=== PATIENT | female | born 1985 | race Caucasian/White ===

== ENCOUNTER 2020-03-11 11:22 | Outpatient (REF) | payer OTHER, SELFPAY | END 2020-03-11 11:23 | disposition home or self-care (01) | LOC: HO.LAB 11:22 | PROVIDERS: Visit Provider Internal Medicine | DX: Z20.828 Contact with and (suspected) exposure to other viral communicable diseases (principal) | CPT/HCPCS: 87635 ==

== ENCOUNTER 2020-03-30 12:22 | Outpatient (REF) | payer OTHER, SELFPAY | END 2020-03-30 12:23 | disposition home or self-care (01) | LOC: HO.LAB 12:22 | PROVIDERS: Visit Provider Internal Medicine | DX: Z20.828 Contact with and (suspected) exposure to other viral communicable diseases (principal) | CPT/HCPCS: C9803; U0003 ==

== ENCOUNTER 2021-07-23 18:57 | Emergency (ER) | payer OTHER, SELFPAY ==
--- NOTE | ~2021-07-23 | CT_ITS ---
EXAMINATION: NONCONTRAST HEAD CT NONCONTRAST SINUS CT INDICATION INFORMATION: Right side numbness. Evaluate for sinusitis. COMPARISON: CT of the brain dated from 05/28/2016. TECHNIQUE: Separate noncontrast CT examinations of the head and paranasal sinuses were performed. Coronal and sagittal images were created for each examination at the technologist workstation. This CT examination was performed using dose optimization techniques as appropriate, variously including the following: *Automated exposure control *Adjustment of mA and/or kV according to patient size (this includes techniques or standardized protocols for targeted exams where dose is matched to indication/reason for exam; i.e. extremities or head) *Use of iterative reconstruction technique DLP: 734 and 133 mGy-cm FINDINGS: Head: There is no evidence of acute intracranial hemorrhage or territorial infarction. No abnormal mass effect or midline shift is seen. Coello to white matter differentiation is well preserved. No extra-axial fluid collections are identified. No hydrocephalus. No significant volume loss. There is no abnormal attenuation within the brain parenchyma. No acute soft tissue abnormality. No calvarial fracture. The mastoid air cells are well aerated. Maxillofacial and sinuses: No acute maxillofacial fractures are seen. There is very minimal mucosal thickening of the paranasal sinuses which are otherwise clear. The uncinate process is normal bilaterally. The infundibula and middle meati are patent. The nasal septum is deviated to the left. The mandibular heads are well-seated in the condylar fossa. The orbits demonstrate a normal appearance bilaterally. The globes are intact, and there are no suspicious findings to suggest retrobulbar hemorrhage. Visualized portions of the cervical spine are unremarkable. CT/CT head/brain wo con IMPRESSION: Very mild mucosal thickening of the paranasal sinuses. Otherwise, normal examination.
[2021-07-23 19:01] VITALS: BP 136/71; PULSE 82; RESP 16; TEMP 37.4; O2SAT 100; BMI 31.2
[2021-07-23 19:26] VITALS: BMI 29.7
--- NOTE | 2021-07-23 19:51 | ED.GENADULT ---
HPI - General Adult General Chief complaint: Eye Problems Stated complaint: numbness under eye/swollen Time Seen by Provider: 07/23/21 19:24 Source: patient Mode of arrival: ambulatory Limitations: no limitations History of Present Illness HPI narrative: 35 yold who smokes presents to the ED for numbness/tingling under right eye for 3 days and slight discomfort below right eye. patient denies any change in vision, pain actual eye, loss of visions, headache, dizziness, slurred speech, paralysis/weakness of extremities, headache, nausea, vomitting, dizziness, eye redness, eye pain, chest pain, shortness of breath, eye discharge, or recent trauma to the eye/face. Related Data Previous Rx's Medication Instructions Recorded triamcinolone acetonide 55 mcg 2 spray INTRANASAL DAILY 7 Days 07/23/21 nasal spray aerosol (Nasacort) #16.9 ml Allergies Allergy/AdvReac Type Severity Reaction Status Date / Time No Known Allergies Allergy Unverified 01/29/20 17:22 [No Known Allergies*] Review of Systems Review of Systems: under right eye numbness/tingling. Yes all other systems are reviewed and are negative ENT: Reports Normal hearing present Neurologic: Reports Normal hearing present [facility] Past Medical History Medical History (Updated 07/24/21 @ 00:02 by Background Daemon) No known health problems Social History Social History Advance Directives: No Advance Directives Information Provided: No Patient : No Physical Exam ED Vital Signs: Vital Signs - 24 hr 07/23/21 19:01 Temperature 99.3 F Pulse Rate 82 Respiratory Rate 16 Blood Pressure 136/71 Pulse Oximetry 100 BMI result Body Mass Index 29.7 Const General: cooperative, healthy appearing, comfortable, no acute distress, well developed, alert, awake and Physically active Orientation/consciousness: patient oriented x3 HENMT Head: Yes normal to inspection, Yes No palpable skull fracture present, Yes normocephalic, Yes atraumatic and No abrasion Ears: hearing grossly normal bilaterally, external ears normal, TM's normal bilaterally, EAC's normal, mastoids normal and no periauricular adenopathy General nose exam: Normal external nose present and Normal nares present Eyes Other: Left eye are normal. Right eye visual acuity 20/30. Left eye 20/20. Pupils: Equal, round and reactive pupils present Eyes/upper lids images: 1. patient states tenderness with numbness/tingling and slightly less sensation in comparison to area below left eye. Right eye negative for swelling of eyelids, redness of conjuctiiva/sclera, fever, globe tenderness, or discharge. Negative for obvious foreign body or corneal abrasion. Right eye to tonometry pressure is 14 and left eye is 19. Neck Neck: Yes normal visual inspection, Yes full ROM, Yes no lymphadenopathy, Yes no meningeal signs, Yes trachea midline, Yes supple, No anterior neck swelling and No tender Chest Chest palpation & inspection: normal inspection of the chest and normal palpation of entire chest wall Resp Effort & Inspection: normal respiratory effort and able to speak in complete sentences Auscultation: clear to auscultation bilaterally Cardio Jugular venous distension: no JVD Heart sounds: S1 normal heart sound present and S2 normal heart sound present GI Inspection: Yes normal to inspection and No abdominal wall ecchymosis Palpation (GI): Soft to palpation, not firm, nontender, no guarding and not rigid General: No CVA tenderness and Yes no CVA tenderness Back/Spine/Pelvis Back: no CVA tenderness, No CVA tenderness and No back tenderness Skin General skin exam: no rashes or lesions noted and elasticity normal Neuro Other: Negative for slurred speech. Negative facial droop. All extremities equal strength 5+. [id number] and rapid hand movement intact negative Romberg. Negative pronator drift. General: patient oriented x3, gait normal, no meningeal signs and CN's II-XI intact bilaterally Cranial nerves: Yes CN's II-XII intact bilaterally, Yes Intact sense of smell present, Yes Equal, round and reactive pupils present, Yes Normal accommodation reflex present, Yes Bilaterally intact EOM present, Yes Nystagmus not present, Yes Normal facial strength present, Yes Midline tongue present, Yes Normal gag reflex present, Yes Symmetric palate elevation present, Yes Normal hearing present, Yes Ability to bilaterally rotate head present and Yes Ability to bilaterally elevate shoulders present Cognition (Neuro): normal cognition Gait exam (Neuro): Normal gait present Motor exam (neuro): 5/5 motor strength present throughout Sensory Exam: Normal double simultaneous stimulation for sensation NIH Stroke Scale Internal: Initial- Upon Arrival Level of Consciousness: Alert Level of Consciousness Questions: Answers both questions correctly Level of Consciousness Commands: Performs both tasks correctly Best Gaze: Normal Visual: No visual loss Facial Palsy: Normal Motor Arm (Right): No drift Motor Arm (Left): No drift Motor Leg (Right): No drift Motor Leg (Left): No drift Limb Ataxia: Absent Sensory: Normal Best Language: No aphasia Dysarthia: Normal Extinction and Inattention: No abnormality Score: 0 Course Course Course Narrative: NIH score 0. But due to paresthesia below right eye with patient stating history of smoking with the head CT scan is no stroke (likely due to an eyes: 0. Reevaluation(s) Reevaluation #1: Head CT scan came back negative for stroke. Facial CT shows signs of paranal sinsuses thickening. Eye exam does not indicate glaucoma, conjunctivitis, scleritis, episcleritis, foreign body, globe rupture, orbital cellulitis, preseptal cellulitis, or corneal abrasion. Patient informed to follow-up with neurology for paresthesia. Patient will be discharged with Nasacort for sinus tenderness. Medical Decision Making MDM Narrative Medical decision making narrative: Paresthesia. Sinusitis Discharge Plan Discharge Clinical Impression: Sinusitis, Paresthesia Patient Disposition: Home, Self-Care Instructions: Sinusitis (ED), Paresthesia (ED) Additional Instructions: Head CT came back negative for signs of stroke. You're facial CT shows sinus wall thickening to indicate sinusitis. You will be discharged with Nasacort and also will recommend you follow-up with Neurology for paresthesia. Prescriptions: New triamcinolone acetonide [Nasacort] 55 mcg aerosol,spray 2 spray intranasal DAILY 7 Days Qty: 16.9 0RF Rx Instructions: administer into each nostril Interventions: ED Discharge Assessment Last Done: 07/23/21 21:38 Discharge Date/Time: 07/23/21 21:39 Print Language: Wolof
== END 2021-07-23 21:39 | disposition home or self-care (01) ==
PROVIDERS: Emergency Provider Emergency Medicine Emergency Medical Services
DX: J32.9 Chronic sinusitis, unspecified (principal); R20.2 Paresthesia of skin; F17.200 Nicotine dependence, unspecified, uncomplicated
CPT/HCPCS: 70450; 70486; 99283; 99284

== ENCOUNTER 2023-08-25 19:02 | Emergency (ER) | payer OTHER, SELFPAY ==
--- NOTE | ~2023-08-25 | XR_ITS ---
EXAMINATION: XR HAND, LEFT CLINICAL INFORMATION: Injury to the left small finger. COMPARISON: None available. TECHNIQUE: PA, lateral, and oblique views of the left hand. FINDINGS: Soft tissue swelling is present around the small finger PIP joint. No fracture or malalignment. Bone mineralization is normal. Joint spaces appear well-preserved. No erosions. Radiocarpal joint is unremarkable. XR/XR hand LT 2V IMPRESSION: Soft tissue swelling at the small finger PIP joint. No acute osseous findings.
[2023-08-25 19:44] VITALS: BP 108/68; PULSE 84; RESP 16; TEMP 37.2; O2SAT 100; BMI 28.4
[2023-08-25 20:05] VITALS: BP 116/68; PULSE 84; RESP 18; TEMP 37.1; O2SAT 100
--- NOTE | 2023-08-25 22:33 | ED.EXTPRO ---
HPI - Extremity Problem General Chief complaint: Extremity Injury, Upper Stated complaint: ? left pinky finger broken Time Seen by Provider: 08/25/23 22:23 Source: patient Mode of arrival: ambulatory Limitations: no limitations History of Present Illness HPI Narrative: 37-year-old female with no significant pmhx presents to the ED today for evaluation of left pinky pain/swelling after injury occurring 1 hour prior to arrival in the ED. She states that she was playing around with her boyfriend, when to push him with her left hand and felt her pinky twist/ bend. Endorses immediate pain and swelling to the base of the pinky. Admits to previous injury to left pinky years ago which caused her inability to bend the left pinky. Denies tingling/ numbness to the pinky. Denies other concerns. Related Data Previous Rx's ?Medication ?Instructions ?Recorded triamcinolone acetonide 55 mcg 2 spray intranasal DAILY 7 days 07/23/21 nasal spray aerosol (Nasacort) #16.9 mL Allergies Allergy/AdvReac Type Severity Reaction Status Date / Time No Known Allergies Allergy Verified 08/25/23 19:45 [No Known Allergies*] Review of Systems Review of Systems: Constitutional: No fever, chills, fatigue, night sweats, weight changes ENT/Mouth: No ear pain, hearing loss, nasal congestion, sinus pain, rhinorrhea, sore throat Eyes: No eye pain, swelling, redness, vision changes, discharge Cardio: No chest pain, palpitations, GONZALEZ, orthopnea, peripheral edema Pulm: No SOB, cough, sputum, wheezing, dyspnea, hemoptysis GI: No nausea, vomiting, hematemesis, abdominal pain, diarrhea, constipation, hematochezia, melena : No irregular bleeding, dysuria, frequency, urgency, hesitancy, hematuria, flank pain, urinary flow changes, urinary incontinence or retention MSK: No back pain, neck pain, joint pain, myalgias, +left pinky pain/swelling Skin: No lesions, rashes Neuro: No weakness, numbness, paresthesias, LOC, dizziness, headache Psych: No anxiety/panic, depression, SI/HI, AH/VH All other systems reviewed and are negative. [facility] Past Medical History Attestation statement: The following information was validated with the patient. Source: old records reviewed and nursing notes reviewed Medical History No known health problems Social History Social History Advance Directives: No Advance Directives Information Provided: No Physical Exam Vital Signs: Vital Signs: Last Vital Signs Temp 98.5 F 08/25/23 22:57 Pulse 80 08/25/23 22:57 Resp 18 08/25/23 22:57 BP 118/66 08/25/23 22:57 Pulse Ox 100 08/25/23 22:57 O2 Del Method Room Air 08/25/23 22:57 BMI result Body Mass Index 28.4 Vital signs stable Const: General: cooperative, healthy appearing, comfortable and no acute distress Orientation/consciousness: patient oriented x3 Limitations: no limitations HEENT: Head: Yes normal to inspection, Yes No palpable skull fracture present, Yes normocephalic and Yes atraumatic Eyes: General: appearance normal, both eyes and all related structures Conjunctivae: conjunctivae normal Sclerae: sclerae normal Pupils: Equal, round and reactive pupils present Neck: Neck: Yes normal visual inspection, Yes full ROM and Yes no lymphadenopathy Neuro: General: patient oriented x3 Cranial nerves: Yes Equal, round and reactive pupils present Extrem: Other: + left 5th digit with mild swelling and ecchymosis around the PIP. Limited ROM which is patient's baseline. Full ROM to all other digits on left hand. Entire left 5th digit tender to palpation. Normal capillary refill. 2+ radial pulse. Sensation intact. Course Course Course Narrative: 0-- x-ray left ankle does not demonstrate acute fracture. There is soft tissue swelling at the PIP joint. Discussed all results with patient. Will provide her with finger splint. Advised to take Tylenol and ibuprofen as needed for pain/discomfort. Patient has remained stable throughout ED visit today. Discussed worrisome signs and symptoms and when to return to the ED. All questions answered at this time. Patient is agreeable with disposition and stable for discharge. Medical Decision Making Medical Decision Making MDM Narrative: 37-year-old female with no significant pmhx presents to the ED today for evaluation of left pinky pain/swelling after injury occurring 1 hour prior to arrival in the ED. Vital signs stable, afebrile. She is nontoxic-appearing and in no acute distress. On exam, left 5th digit with mild swelling and ecchymosis around the PIP. Limited ROM which is patient's baseline. Full ROM to all other digits on left hand. Entire left 5th digit tender to palpation. Normal capillary refill. 2+ radial pulse. Sensation intact. Differential diagnosis includes contusion, fracture, dislocation. Unlikely open fracture, compartment syndrome, neurovascular compromise, threat to limb. Plan for x-rays and re-evaluation. Differential Diagnosis Differential Diagnoses: The differential diagnosis associated with the presentation includes As above Admission/Observation Not indicated Independent Interpretation I performed an independent interpretation of an: Plain X-Ray Interpretation: X-ray of left pinky does not demonstrate acute fracture, agree with radiologist's interpretation. Radiology Impression Discussion of test interpretation with radiology: I have reviewed the radiologist's reading. Radiologist Impression: EXAMINATION: XR HAND, LEFT CLINICAL INFORMATION: Injury to the left small finger. COMPARISON: None available. TECHNIQUE: PA, lateral, and oblique views of the left hand. FINDINGS: Soft tissue swelling is present around the small finger PIP joint. No fracture or malalignment. Bone mineralization is normal. Joint spaces appear well-preserved. No erosions. Radiocarpal joint is unremarkable. XR/XR hand LT 2V IMPRESSION: Soft tissue swelling at the small finger PIP joint. No acute osseous findings. Prescription Management I considered prescription management with: Pain Medication Social Determinants Patient?s care significantly limited by Social Determinants of Health including: Other Social Determinant of Health Procedures Orthopedic Splinting/Casting Injury #1: Side: left Upper Extremity Injury Location: finger (Pinky) Upper Extremity Immobilizer: finger (other) Critical Care Time Critical Care Time Critical Care Time: No Discharge Plan Discharge Clinical Impression: Finger sprain Patient Disposition: Home, Self-Care Instructions: Jammed Finger (ED), Finger Sprain (ED) Additional Instructions: The x-rays of your left pinky do not exhibit fracture however does show swelling. You were provided with a finger splint today. This on for 1-2 weeks to help with the healing process. You may ice the area for 20 minutes at a time. Take ibuprofen and Tylenol at home as needed for pain/discomfort. Follow-up with your primary care provider. Return with new or worsening symptoms. In the case of emergency call 911. Prescriptions: No Action triamcinolone acetonide [Nasacort] 55 mcg aerosol,spray 2 spray intranasal DAILY 7 Days Qty: 16.9 0RF Rx Instructions: administer into each nostril Stand Alone Forms: Work/School Release Interventions: ED Discharge Assessment Last Done: 08/25/23 22:57 Discharge Date/Time: 08/25/23 23:01 Print Language: Georgian
[2023-08-25 22:57] VITALS: BP 118/66; PULSE 80; RESP 18; TEMP 36.9; O2SAT 100
== END 2023-08-25 23:01 | disposition home or self-care (01) ==
PROVIDERS: Emergency Provider Emergency Medicine
DX: S63.617A Unspecified sprain of left little finger, initial encounter (principal); M79.642 Pain in left hand; Y33.XXXA Other specified events, undetermined intent, initial encounter; Y93.9 Activity, unspecified; Y92.9 Unspecified place or not applicable; Y99.8 Other external cause status
CPT/HCPCS: 29130; 73120; 99282; 99283; 99284

== ENCOUNTER 2024-05-12 21:06 | Emergency (ER) | payer OTHER, SELFPAY ==
--- NOTE | ~2024-05-12 | CT_ITS ---
CLINICAL HISTORY: Left flank, LLQ pain, 20 lb weight loss, anemia CT abdomen and pelvis with contrast Comparison: None Findings: Mild motion artifact present. No consolidation or effusion. The liver appears normal in size and contour. 4 cm low-attenuation structure with nodular peripheral enhancement present at the right hepatic lobe, most consistent with a cavernous hemangioma. The gallbladder and solid organs are otherwise within normal limits. No hydronephrosis or hydroureter. No bowel obstruction, pneumoperitoneum, or pneumatosis. There is close apposition of multiple bowel loops diffusely throughout the abdomen, mildly limiting evaluation. Pelvic contents unremarkable. No bladder wall thickening identified. Normal appendix. No acute fracture visualized. IMPRESSION: 1. No acute inflammatory process identified within the abdomen or pelvis. This document has been electronically signed by: James Mathew MD on 05/13/2024 05:05:32
[2024-05-12 21:26] VITALS: BP 148/71; PULSE 100; RESP 16; TEMP 36.9; O2SAT 99; BMI 23.9
[2024-05-12 21:46] LABS: MANUAL DIFF FLAG NO
[2024-05-12 21:47] LABS: Basophils Percent Auto 0.2 % (0-2); Eosinophils Absolute Auto 0.1 X10*3/uL (0.0-0.4); Eosinophils Percent Auto 0.6 % (0-4); Hematocrit 31.7 % (37.0-47.0); Imm Gran Abs Auto 0.05 X10*3/uL (0.00-0.03); Imm Gran Pct Auto 0.4 % (0.0-0.4); Lymphocytes Absolute Auto 2.9 X10*3/uL (1.2-4.9); Lymphocytes Percent Auto 21.8 % (20-40); Mean Corpuscular HGB Conc 31.5 g/dl (31.0-35.0); Mean Corpuscular Volume 72.9 fL (80.0-98.0); Mean Platelet Volume 8.9 fL (9.4-12.3); Monocytes Absolute Auto 1.3 X10*3/uL (0.1-1.2); Monocytes Percent Auto 9.9 % (2-11); Neutrophils Percent Auto 67.1 % (45-73); Platelet Count 353 X10*3/uL (160-400); Red Blood Count 4.35 X10*6/uL (4.20-5.50); Red Cell Distribution Width 15.7 % (11.0-16.0); White Blood Count 13.4 X10*3/uL (4.8-10.8)
[2024-05-12 22:03] LABS: Alanine Aminotransferase 24 U/L (0-31); Albumin Level 4.4 g/dL (3.5-5.0); Alkaline Phosphatase 61 U/L (39-117); Anion Gap 15 (12-20); Aspartate Amino Transferase 33 U/L (5-31); Bilirubin Total 0.2 mg/dL (0.0-1.0); Blood Urea Nitrogen 12 mg/dL (9-16); Calcium 9.3 mg/dL (8.4-10.2); Carbon Dioxide 25 mmol/L (22-29); Chloride 101 mmol/L (96-108); Creatinine Clr Calc Pharmacy 81.4; Estimated Glomerular Filt Rate > 60; Glucose Random 97 mg/dL (60-115); Potassium 3.7 mmol/L (3.3-5.1); Sodium 137 mmol/L (135-145); Total Protein 7.4 g/dL (6.5-8.0)
[2024-05-12 23:04] LABS: Appearance Urine Cloudy; Color Urine Dark Yellow; Glucose Urine UA Negative (Negative); Leukocyte Esterase Urine Negative (Negative); Nitrite Urine Negative (Negative); PH 5.5 (5.0-9.0); Specific Gravity - Urine <= 1.005 (1.005-1.025); Urine Blood Negative (Negative); Urine Ketones Negative (Negative); Urine Protein Negative (Neg-Trace)
[2024-05-12 23:06] LABS: UPreg QC Valid YES; Urine Pregnancy NEGATIVE (NEGATIVE)
--- NOTE | 2024-05-13 01:04 | ED_ITS ---
HPI - Female Genitourinary General Chief complaint: Urogenital-Female Stated complaint: left lower back pain Time Seen by Provider: 05/13/24 03:15 Source: patient Mode of arrival: ambulatory Limitations: no limitations History of Present Illness ED Provider: Dr. 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 Patient states that she was gone to an urgent care clinic several times this month for urinary symptoms which include having the urge to urinate but only making small amounts of urine, dysuria, she describes the left flank left lower quadrant pain as a sharp, pressure-like pain which is 5 ft 6/10, will last several days but then the pain comes back. Patient states that proximally 1 week prior she was given a course of Macrobid b.i.d. x5 days and this did not improve her symptoms. She states that today she had increased pain in her left flank area and left lower quadrant area. Patient states that she was had poor appetite and has lost 20 lb over the last month. She states that her last menstrual period was 2 weeks prior. She states that her menstrual periods are very heavy for several days and then she has less bleeding. The patient has had a bilateral tubal ligation and states she was not . Related Data Previous Rx's ?Medication ?Instructions ?Recorded triamcinolone acetonide 55 mcg 2 spray intranasal DAILY 7 days 07/23/21 nasal spray aerosol (Nasacort) #16.9 mL acetaminophen 500 mg tablet 1,000 mg (2 x 500 mg) PO Q6H PRN 05/13/24 (Tylenol Extra Strength) fever or pain #20 tabs ferrous sulfate 325 mg (65 mg 325 mg PO BID 90 days #180 tabs 05/13/24 iron) tablet ibuprofen 400 mg tablet 400 mg PO TID PRN fever or pain 05/13/24 #30 tabs ondansetron 4 mg disintegrating 4 mg PO Q6-8H PRN nausea and 05/13/24 tablet vomiting #14 tabs Allergies Allergy/AdvReac Type Severity Reaction Status Date / Time No Known Allergies Allergy Verified 05/12/24 21:29 [No Known Allergies*] Review of Systems 2 Review of Systems: Yes all other systems are reviewed and are negative [facility] Past Medical History [facility] Narrative: Social history: She was in her is here in the emergency department with her. She smokes 1 pack of cigarettes per day times many years. She occasionally drinks alcohol. The patient has a history of opiate use disorder but states she has been in methadone for a long time in his not used illicit drugs. Medical History No known health problems Physical Exam 2 Vital Signs: Vital Signs: Last Vital Signs Temp 98.0 F 05/13/24 05:54 Pulse 88 05/13/24 05:54 Resp 14 05/13/24 05:54 BP 114/50 L 05/13/24 05:54 Pulse Ox 95 05/13/24 05:54 O2 Del Method Room Air 05/13/24 05:54 BMI result Body Mass Index 23.9 Vital signs were normal. Exam: General: Awake, alert in no distress Head: Normocephalic, atraumatic EENT: PERRL, Lids normal, sclera normal, conjunctiva normal, nose normal , ears normal, throat without erythema or exudates Neck: Supple, no adenopathy Lung: breath sounds symmetric, no wheezing, rales or rhonchi Chest: symmetric movement, nontender Heart: regular rate and rhythm, normal S1, S2 no murmurs or rubs Abdomen: soft, mild to moderate left lower quadrant tenderness, nondistended, normal bowel sounds Back: no vertebral tenderness, mild to moderate left CVA tenderness T Extremities: no deformities, moves all extremities symmetrically Neuro: Awake, alert, oriented, normal speech, cranial nerves intact, moves all extremities symmetrically Psych: Pleasant, cooperative Medications Administered Discontinued Medications Generic Name Dose Route Start Last Admin Trade Name Freq PRN Reason Stop Dose Admin Sodium Chloride 1,000 mls @ 999 mls/hr 05/13/24 03:29 05/13/24 05:26 Ns IV 05/13/24 04:29 Infused .Q1H1M STA Infusion Iohexol 85 ml 05/13/24 03:50 05/13/24 03:51 Iohexol 350 Mg/Ml 100 Ml Infus..Btl IV 05/13/24 03:51 85 ml ONCE ONE Administration Medical Decision Making Medical Decision Making [facility] Narrative: 38-year-old female with a history of substance use disorder in remission on methadone who presents emergency department for evaluation of intermittent, left flank, left lower quadrant pain, , urinary symptoms with decreased appetite and 20 lb weight loss. Patient states that she was seen multiple times at an urgent care clinic for urinary tract infections and completed a 5 day course of Macrobid 2 days prior with no improvement of her symptoms. Vital signs were normal. Physical examination did reveal left lower quadrant and left flank tenderness. Differential diagnosis: ?Includes but is not limited to urinary tract infection, renal colic, ureteral stone, malignancy, electrolyte abnormalities, anemia Course: :38 Patient's laboratory evaluation was consistent with a microcytic anemia most likely secondary to iron deficiency from her menses. The patient's urinalysis was negative which suggests that her symptoms are not caused by urinary tract infection at this time. CT scan of the abdomen pelvis with IV contrast did not reveal any hydroureter or hydronephrosis and there was no evidence of renal malignancy or large colonic mass. I did discuss these findings with the patient. At this time I do not have a clear cause for her symptoms. The patient will need to follow-up with a PCP for re-evaluation but I did tell her if her symptoms got worse you should return to the emergency department so that we can re-evaluate her. Patient was given prescriptions for ibuprofen 400 mg 3 times a day as needed for pain, Tylenol 1000 mg 3 times a day as needed for pain and Zofran 4 mg ODT 3 times a day as needed for nausea and vomiting. She was given printed and verbal instructions and discharged home. Admission/Observation Consideration of admission/observation: Escalation of care including admission/observation considered (Yes) Lab Data [facility] Lab Attestation statement: I reviewed the patient's lab results. My interpretation patient's laboratory evaluation is as follows: WBC was normal 9600. Patient has a microcytic anemia with an H&H of 10 and 31.7 with an MCV of 72.9. CMP was normal. Urinalysis was negative. 05/12/24 21:42 05/12/24 21:42 Labs: Lab Results 05/12/24 05/12/24 Range/Units 21:42 22:57 WBC 13.4 H (4.8-10.8) X10*3/uL RBC 4.35 (4.20-5.50) X10*6/uL Hgb 10.0 L (12.0-16.0) g/dl Hct 31.7 L (37.0-47.0) % MCV 72.9 L (80.0-98.0) fL MCH 23.0 L (27.0-33.0) pg MCHC 31.5 (31.0-35.0) g/dl RDW 15.7 (11.0-16.0) % Plt Count 353 (160-400) X10*3/uL MPV 8.9 L (9.4-12.3) fL Immature Gran % (Auto) 0.4 (0.0-0.4) % Neut % (Auto) 67.1 (45-73) % Lymph % (Auto) 21.8 (20-40) % [place] % (Auto) 9.9 (2-11) % Eos % (Auto) 0.6 (0-4) % Baso % (Auto) 0.2 (0-2) % Lymph # (Auto) 2.9 (1.2-4.9) X10*3/uL [place] # (Auto) 1.3 H (0.1-1.2) X10*3/uL Eos # (Auto) 0.1 (0.0-0.4) X10*3/uL Baso # (Auto) 0.0 (0.0-0.2) X10*3/uL Abs Immat Gran (auto) 0.05 H (0.00-0.03) X10*3/uL Absolute Neuts (auto) 9.0 H (2.0-8.3) x10*3/uL Absolute Nucleated RBC 0.000 (0.0-0.012) X10*3/uL Nucleated RBC % (auto) 0.0 (0.0-0.2) /100WBC Sodium 137 (135-145) mmol/L Potassium 3.7 (3.3-5.1) mmol/L Chloride 101 (96-108) mmol/L Carbon Dioxide 25 (22-29) mmol/L Anion Gap 15 (12-20) BUN 12 (9-16) mg/dL Creatinine 0.72 (0.5-1.4) mg/dL Estim Creat Clear Calc 81.4 Estimated GFR > 60 Random Glucose 97 (60-115) mg/dL Calcium 9.3 (8.4-10.2) mg/dL Total Bilirubin 0.2 (0.0-1.0) mg/dL AST 33 H (5-31) U/L ALT 24 (0-31) U/L Alkaline Phosphatase 61 (39-117) U/L Total Protein 7.4 (6.5-8.0) g/dL Albumin 4.4 (3.5-5.0) g/dL Urine Color Dark Yellow Urine Appearance Cloudy Urine pH 5.5 (5.0-9.0) Ur Specific [place] <= 1.005 (1.005-1.025) Urine Protein Negative (Neg-Trace) mg/dL Urine Glucose (UA) Negative (Negative) mg/dL Urine Ketones Negative (Negative) mg/dL Urine Blood Negative (Negative) Urine Nitrite Negative (Negative) Ur Leukocyte Esterase Negative (Negative) Urine Test NEGATIVE (NEGATIVE) Radiology Impression Discussion of test interpretation with radiology: I have reviewed the radiologist's reading. Radiologist Impression: CT abdomen and pelvis with contrast Comparison: None Findings: Mild motion artifact present. No consolidation or effusion. The liver appears normal in size and contour. 4 cm low-attenuation structure with nodular peripheral enhancement present at the right hepatic lobe, most consistent with a cavernous hemangioma. The gallbladder and solid organs are otherwise within normal limits. No hydronephrosis or hydroureter. No bowel obstruction, pneumoperitoneum, or pneumatosis. There is close apposition of multiple bowel loops diffusely throughout the abdomen, mildly limiting evaluation. Pelvic contents unremarkable. No bladder wall thickening identified. Normal appendix. No acute fracture visualized. IMPRESSION: 1. No acute inflammatory process identified within the abdomen or pelvis. This document has been electronically signed by: James Mathew MD on 05/13/2024 05:05:32 Independent Historian Clinical information obtained from an independent historian. History obtained from or confirmed by: Spouse Prescription Management I considered prescription management with: Pain Medication (Ibuprofen and Tylenol) and Other (Antiemetic: Zofran) Discharge Plan Discharge Clinical Impression: Abdominal pain, Nausea & vomiting, Dysuria Patient Disposition: Home, Self-Care Instructions: Iron Rich Diet (ED), Iron Deficiency Anemia (ED), Abdominal Pain (ED) Additional Instructions: Your blood work revealed a low red blood cell count which is consistent with iron deficient anemia. Your blood work was otherwise unremarkable. Urinalysis was negative for urine infection. The CT scan of the abdomen pelvis with IV contrast did not reveal a clear cause for your pain, there was no evidence for swelling of your left kidney, kidney stone or infection of your bladder. There was no evidence for cancer/malignancy on the CT scan at this time. For your iron deficiency anemia I am prescribing iron (ferrous sulfate) 325 mg pills, 1 pill twice a day for 3 months. Take Zofran ODT 4 mg pills, 1 pill dissolved in your mouth every 8 hours as needed for nausea and vomiting. Take ibuprofen 400 mg pills, 1 pills every 6 hours as needed for pain or fever. Take Tylenol (acetaminophen) 500 mg pills, 2 pills every 6 hours as needed for pain or fever. Follow-up with a PCP doctor or return to the emergency department if you are not better in 2-3 days. Please return to the emergency department if your symptoms get worse or if you develop any symptoms that are concerning to you. Try calling the following numbers to see if you can get a primary care provider to help you with your medical problems. [facility] PCP referral line [facility] Adult primary care and family medicine [facility] Prescriptions: New acetaminophen [Tylenol Extra Strength] 500 mg tablet 1,000 mg PO Q6H PRN (Reason: fever or pain) Qty: 20 0RF ferrous sulfate 325 mg (65 mg iron) tablet 325 mg PO BID 90 Days Qty: 180 0RF ibuprofen 400 mg tablet 400 mg PO TID PRN (Reason: fever or pain) Qty: 30 0RF ondansetron 4 mg tablet,disintegrating 4 mg PO Q6-8H PRN (Reason: nausea and vomiting) Qty: 14 0RF No Action triamcinolone acetonide [Nasacort] 55 mcg aerosol,spray 2 spray intranasal DAILY 7 Days Qty: 16.9 0RF Rx Instructions: administer into each nostril Interventions: ED Discharge Assessment Last Done: 05/13/24 05:54 Discharge Date/Time: 05/13/24 06:05 Print Language: [place]
[2024-05-13 02:30] VITALS: BP 101/50; PULSE 99; RESP 18; TEMP 37.1; O2SAT 100
[2024-05-13] MEDS: iohexoL 350 MG/ML 100 ML INFUS..BTL 85 ML IV (03:51)
[2024-05-13] MEDS: 0.9 % Sodium Chloride 1,000 ML 999 ML IV (04:02)
[2024-05-13 05:34] VITALS: BP 114/50; PULSE 88; RESP 14; TEMP 36.7; O2SAT 95
[2024-05-13 05:54] VITALS: BP 114/50; PULSE 88; RESP 14; TEMP 36.7; O2SAT 95
== END 2024-05-13 06:05 | disposition home or self-care (01) ==
PROVIDERS: Emergency Provider Emergency Medicine Emergency Medical Services
DX: R10.32 Left lower quadrant pain (principal); R11.2 Nausea with vomiting, unspecified; R30.0 Dysuria; R63.4 Abnormal weight loss; Z68.23 Body mass index [BMI] 23.0-23.9, adult; F11.20 Opioid dependence, uncomplicated; F17.210 Nicotine dependence, cigarettes, uncomplicated; Z98.51 Tubal ligation status
CPT/HCPCS: 36415; 74177; 80053; 81003; 81025; 85025; 96360; 99284; Q9967

== ENCOUNTER → 2024-05-13 03:30 | Outpatient (BNV) | payer OTHER, SELFPAY | PROVIDERS: Emergency Provider Emergency Medicine Emergency Medical Services; Visit Provider Radiology Diagnostic Radiology | DX: M54.50 Low back pain, unspecified (principal) | CPT/HCPCS: 74177 ==